=== PATIENT | male | born 1945 | race Caucasian/White ===

== ENCOUNTER → 2017-12-25 | Outpatient (CLI) | payer OTHER ==
[~2017-12-25] MED LIST: B-121000 MC2 PO; CELE200 PO; CHOL10002 PO; EPIN.3I IM; HYDR1TAB94 PO
[2017-12-25 10:55] LABS: Source, Urine Clean Catch
[2017-12-25 13:00] LABS: Bilirubin, Urine Neg (Neg); Blood, Urine Neg (Neg); Glucose Qualitative, Urine Neg (Neg); Ketones, Urine Neg (Neg); Leukocyte Esterase, Urine Neg (Neg); Nitrite, Urine Neg (Neg); Protein, Urine Neg (Neg); Specific Gravity, Urine 1.015 (1.003-1.022); Urobilinogen, Urine NORM (Normal)
[2017-12-25 13:10] LABS: Appearance, Urine Clear (Clear); Color, Urine Yellow (P-Yellow)
== END | disposition home or self-care (01) ==
LOC: LAB 10:54 → LAB SHORT 10:54 → LAB FUT 12-24 18:10 → EDSTATUS 12-24 18:10
PROVIDERS: Internal Medicine
DX: N39.0 Urinary tract infection, site not specified (principal)
CPT/HCPCS: 81003

== ENCOUNTER 2018-01-06 00:40 | Day surgery (SDC) | payer OTHER ==
[2018-01-06] MEDS ORDERED: METAMUCIL660 GM PO (10:28)
[2018-01-06] MEDS ORDERED: Oxycodone-Apap1 EAC3 PO (10:28)
[2018-01-06] MEDS ORDERED: VENL25 PO (10:29)
== END 2018-01-06 10:15 | disposition home or self-care (01) ==
LOC: ATC 00:40
DX: N40.1 Benign prostatic hyperplasia with lower urinary tract symptoms (principal); R35.0 Frequency of micturition; R35.1 Nocturia; R30.0 Dysuria
CPT/HCPCS: 51798

== ENCOUNTER 2018-12-29 12:23 | Emergency (ER) | payer OTHER ==
[~2018-12-29] VITALS: Ht 188 cm; Wt 86.2 kg
[~2018-12-29 12:23] MED LIST changes: +METAMUCIL660 GM PO; +Oxycodone-Apap1 EAC3 PO; +VENL25 PO
[2018-12-29] MEDS ORDERED: Augmentin 875-1 EACH PO (16:18)
[2018-12-29] MEDS ORDERED: Norco 5-325 Ta1 EACH PO (16:18)
== END 2018-12-29 16:50 | disposition home or self-care (01) ==
LOC: ER 12:23
DX: S62.521B Displaced fracture of distal phalanx of right thumb, initial encounter for open fracture (principal); X58.XXXA Exposure to other specified factors, initial encounter; Z88.0 Allergy status to penicillin; Z88.8 Allergy status to other drugs, medicaments and biological substances; Z79.899 Other long term (current) drug therapy
CPT/HCPCS: 29130; 36415; 73140; 90471; 90714; 96365-59; 99283-25; J0690; J0696

== ENCOUNTER → 2019-11-12 | Outpatient (CLI) | payer OTHER ==
[~2019-11-12] MED LIST changes: +Augmentin 875-1 EACH PO; +Norco 5-325 Ta1 EACH PO
== END | disposition home or self-care (01) ==
DX: R30.9 Painful micturition, unspecified (principal)

== ENCOUNTER 2024-01-17 10:16 | Inpatient (IN) | payer OTHER ==
[~2024-01-17] VITALS: Ht 185.4 cm; Wt 102.2 kg
[2024-01-17 14:38] LABS: BASOPHILS ABSOLUTE AUTO 0.02 K/mm3 (0.00-0.23); BASOPHILS PERCENT AUTO 0 % (0-2); EOSINOPHILS PERCENT AUTO 0 % (0-6); Hematocrit 43.9 % (37.0-53.0); Hemoglobin 13.9 g/dL (13.5-17.5); IMMATURE GRAN ABSOLUTE AUTO 0.05 K/mm3 (0.00-0.10); IMMATURE GRAN PERCENT AUTO 0 % (0-1); LYMPHOCYTES ABSOLUTE AUTO 1.17 K/mm3 (0.84-5.20); LYMPHOCYTES PERCENT AUTO 8 % (21-46); MONOCYTES ABSOLUTE AUTO 0.83 K/mm3 (0.16-1.47); MONOCYTES PERCENT AUTO 6 % (4-13); Mean Corpuscular HGB 27.8 pg (26.0-34.0); Mean Corpuscular HGB Conc 31.7 g/dL (31.5-36.5); Mean Corpuscular Volume 88 fL (80-100); Mean Platelet Volume 10.1 fL (9.1-12.4); NEUTROPHILS ABSOLUTE AUTO 11.88 K/mm3 (1.96-9.15); NEUTROPHILS PERCENT AUTO 85 % (41-73); Platelet Count 194 K/mm3 (150-400); RDW Coefficient Variation 13.1 % (11.7-14.2); RDW Standard Deviation 41.5 fL (35.1-46.3); White Blood Cell Count 13.95 K/mm3 (4.00-11.30)
[2024-01-17 14:52] LABS: Appearance, Urine Clear (Clear); Color, Urine Yellow (P-Yellow); Glucose Qualitative, Urine Neg (Neg); Ketones, Urine 3+ (Neg); Leukocyte Esterase, Urine Neg (Neg); Nitrite, Urine Neg (Neg); Protein, Urine 1+ (Neg); Urobilinogen, Urine NORM (Normal)
[2024-01-17 14:53] LABS: Bacteria Rare /hpf; Bilirubin, Urine Neg (Neg); Blood, Urine 2+ (Neg); Squamous Epithelial Cells Few /hpf (Few)
[2024-01-17 14:57] LABS: Albumin, Blood 3.3 g/dL (3.4-5.0); Albumin/Globulin Ratio 0.8 (0.8-1.8); Bilirubin, Total 0.5 mg/dL (0.1-1.0); Bun/Creatinine Ratio 17.8 (12.0-20.0); Calcium, Blood 8.1 mg/dL (8.5-10.1); Creatinine, Blood 0.9 mg/dL (0.60-1.20); Potassium, Blood 3.9 mmol/L (3.5-5.5); Total Protein, Blood 7.3 g/dL (6.4-8.2)
[2024-01-17] MEDS ORDERED: METR500 PO (15:06)
[2024-01-17] MEDS ORDERED: CIPR500 PO (15:06)
[2024-01-17] MEDS ORDERED: PROBIOTIC1 EA13 PO (15:07)
[2024-01-17] MEDS ORDERED: Ciprofloxacin 500 MG Tab PO ONE (16:50)
[2024-01-17 20:59] VITALS: BP 162/87
[2024-01-17] MEDS ORDERED: Albuterol HFA200 ACT/6.7 GM INH INH PRN (21:10)
[2024-01-17] MEDS ORDERED: OxyCODONE 5 mg/Acetamin 325 mg TABLET PO PRN (21:30)
[2024-01-17] MEDS ORDERED: NS 1,000 ML IV SCH (21:35)
[2024-01-18] MEDS ORDERED: Ondansetron HCl 2 MG / ML 2ML Vial IV PRN (00:35)
[2024-01-18] MEDS ORDERED: NS 1,000 ML IV ONE (00:40)
[2024-01-18 04:41] VITALS: BP 147/94
[2024-01-18 05:47] LABS: BASOPHILS ABSOLUTE AUTO 0.02 K/mm3 (0.00-0.23); BASOPHILS PERCENT AUTO 0 % (0-2); EOSINOPHILS PERCENT AUTO 0 % (0-6); Hematocrit 44.2 % (37.0-53.0); Hemoglobin 14.5 g/dL (13.5-17.5); IMMATURE GRAN ABSOLUTE AUTO 0.07 K/mm3 (0.00-0.10); IMMATURE GRAN PERCENT AUTO 1 % (0-1); LYMPHOCYTES ABSOLUTE AUTO 1.26 K/mm3 (0.84-5.20); LYMPHOCYTES PERCENT AUTO 9 % (21-46); MONOCYTES ABSOLUTE AUTO 1.06 K/mm3 (0.16-1.47); MONOCYTES PERCENT AUTO 8 % (4-13); Mean Corpuscular HGB 28.4 pg (26.0-34.0); Mean Corpuscular HGB Conc 32.8 g/dL (31.5-36.5); Mean Corpuscular Volume 87 fL (80-100); Mean Platelet Volume 9.6 fL (9.1-12.4); NEUTROPHILS ABSOLUTE AUTO 11.55 K/mm3 (1.96-9.15); NEUTROPHILS PERCENT AUTO 83 % (41-73); Platelet Count 177 K/mm3 (150-400); RDW Coefficient Variation 13.2 % (11.7-14.2); RDW Standard Deviation 41.7 fL (35.1-46.3); White Blood Cell Count 13.96 K/mm3 (4.00-11.30)
[2024-01-18 06:09] LABS: Albumin, Blood 3.2 g/dL (3.4-5.0); Albumin/Globulin Ratio 0.8 (0.8-1.8); Bilirubin, Total 0.6 mg/dL (0.1-1.0); Bun/Creatinine Ratio 19.8 (12.0-20.0); Calcium, Blood 8.4 mg/dL (8.5-10.1); Creatinine, Blood 1.11 mg/dL (0.60-1.20); Magnesium, Blood 1.9 mg/dL (1.6-2.4); Phosphorus, Blood 3.6 mg/dL (2.5-4.9); Potassium, Blood 3.4 mmol/L (3.5-5.5); Total Protein, Blood 7.2 g/dL (6.4-8.2)
--- NOTE | 2024-01-18 06:15 | NUR ---
SHIFT SUMMARY: Pt is admitted for colitis and is a full code. Is alert and able to make needs known. ADLs have been 2p but did not get out of bed during shift. Denies pain or discomfort when asked. Telly reports sinus at 96 with PACs.
[2024-01-18 07:08] VITALS: BP 157/83
[2024-01-18] MEDS ORDERED: Calcium Citrate 950 MG Tab PO ONE (07:30)
[2024-01-18] MEDS ORDERED: Mag Sulfate 1 GM/D5% 100ML 100 ML IV ONE (07:30)
[2024-01-18] MEDS ORDERED: Potassium Phosphate Dibasic 15 MM in Dextrose 5% 250 ML IV ONE (07:30)
[2024-01-18] MEDS ORDERED: Apixaban 5 MG Tab PO SCH (09:00)
[2024-01-18] MEDS ORDERED: AmLODIPine Besylate 5 MG Tab PO SCH (09:00)
[2024-01-18] MEDS ORDERED: Lactobacil 2-S.Thermo-Bifido 1 1 Cap PO SCH (09:00)
[2024-01-18] MEDS ORDERED: Metoprolol Tartrate 25 MG Tab PO SCH (09:00)
--- NOTE | 2024-01-18 17:40 | NUR ---
SHIFT SUMMARY PATIENT IN BED ALL SHIFT, WORKED WITH PT THIS SHIFT, RECOMMENDING SNF FOR STRENGHTENING. PATIENT HAVING SEVERAL EPISODES OF INCONTINENT BOWEL MOVEMENTS. INCONTINENT OF URINE WELL. A/O X3-4 HARD OF HEARING. ABLE TO USE CALL LIGHT, CARES ONGOING.
[2024-01-18] MEDS ORDERED: Tamsulosin HCl 0.4 MG Cap PO SCH (18:00)
[2024-01-18 19:11] VITALS: BP 145/68
[2024-01-19 02:48] VITALS: BP 113/70
[2024-01-19 05:16] LABS: BASOPHILS ABSOLUTE AUTO 0.02 K/mm3 (0.00-0.23); BASOPHILS PERCENT AUTO 0 % (0-2); EOSINOPHILS ABSOLUTE AUTO 0.03 K/mm3 (0.00-0.68); EOSINOPHILS PERCENT AUTO 0 % (0-6); Hematocrit 43.3 % (37.0-53.0); Hemoglobin 14.1 g/dL (13.5-17.5); IMMATURE GRAN ABSOLUTE AUTO 0.05 K/mm3 (0.00-0.10); IMMATURE GRAN PERCENT AUTO 0 % (0-1); LYMPHOCYTES ABSOLUTE AUTO 1.77 K/mm3 (0.84-5.20); LYMPHOCYTES PERCENT AUTO 14 % (21-46); MONOCYTES ABSOLUTE AUTO 1.43 K/mm3 (0.16-1.47); MONOCYTES PERCENT AUTO 11 % (4-13); Mean Corpuscular HGB 28.2 pg (26.0-34.0); Mean Corpuscular HGB Conc 32.6 g/dL (31.5-36.5); Mean Corpuscular Volume 87 fL (80-100); Mean Platelet Volume 9.8 fL (9.1-12.4); NEUTROPHILS ABSOLUTE AUTO 9.22 K/mm3 (1.96-9.15); NEUTROPHILS PERCENT AUTO 74 % (41-73); Platelet Count 184 K/mm3 (150-400); RDW Coefficient Variation 13.2 % (11.7-14.2); RDW Standard Deviation 41.9 fL (35.1-46.3); White Blood Cell Count 12.52 K/mm3 (4.00-11.30)
[2024-01-19 05:39] LABS: Magnesium, Blood 2.5 mg/dL (1.6-2.4)
[2024-01-19 05:40] LABS: Albumin, Blood 2.8 g/dL (3.4-5.0); Anion Gap 14 mmol/L (3-11); Blood Urea Nitrogen 40 mg/dL (8-24); Bun/Creatinine Ratio 18.4 (12.0-20.0); CO2, Blood 23 mmol/L (21-32); Calcium, Blood 8.5 mg/dL (8.5-10.1); Chloride, Blood 102 mmol/L (98-108); Creatinine, Blood 2.17 mg/dL (0.60-1.20); Glomerular Filtration Rate 30 (60-); Glucose, Blood 129 mg/dL (70-99); Phosphorus, Blood 4.6 mg/dL (2.5-4.9); Potassium, Blood 3.5 mmol/L (3.5-5.5); Sodium, Blood 135 mmol/L (136-145)
--- NOTE | 2024-01-19 06:03 | NUR ---
SHIFT SUMMARY: Pt is admitted for colitis and is a full code. Is alert and able to make needs known. ADLs have been 2p but did not get out of bed during shift. Pain was taken care with with PRN pain management. Raul reports sinus at 60s.
[2024-01-19 07:12] VITALS: BP 123/87
[2024-01-19 07:27] LABS: Influenza A, PCR NEGATIVE (NEGATIVE); Influenza B, PCR NEGATIVE (NEGATIVE); Resp Syncytial Virus, PCR NEGATIVE (NEGATIVE); SARS-Cov-2 (COVID-19) PCR, MMC NEGATIVE (NEGATIVE)
--- NOTE | 2024-01-19 08:58 | NUR ---
CONTACTED DR CAMARENA, PATIENT CONVERTED TO AFIB 96 BPM ABOUT 0700 THIS AM. RECIEVED NOTIFICATION FROM TELE ABOUT 829. NO NEW ORDERS. PATIENT ASYMPTOMATIC AT THIS TIME
[2024-01-19 16:51] VITALS: BP 117/80
--- NOTE | 2024-01-19 17:24 | NUR ---
SHIFT SUMMARY PATIENT ACCEPTING OF TURNING AND POSITIONING HELP. ONLY ONE SMALL BM THIS SHIFT. COYLE CATH INSERTED FOR URINE COLLECTION, ON INSERTION 1400ML DRAINED IMMEDIATELY. PATIENT DENIED DISCOMFORT OR THE URGE TO URINATE, ALSO HAD SOAKED BRIEF. PATIENT STATES TO HAVING A HISTORY OF RETENTION. 24 HOUR URINE COLLECTION CONTAINER ON ICE PER LAB REQUEST. FLUIDS INFUSING PER MAR. A/O 2-3, MORE EPISODES OF CONFUSION TODAY. DISCUSSED SNF RECOMMENDATION PER PT NOTES WITH WHO STATES TO BE IN AGREEMENT. CM CONSULT IN. CALL LIGHT IN REACH, CARES ONGOING.
[2024-01-19 19:09] VITALS: BP 121/86
[2024-01-19] MEDS ORDERED: AmLODIPine Besylate 5 MG Tab PO SCH (21:00)
[2024-01-20 03:55] VITALS: BP 113/72
[2024-01-20 05:05] LABS: Hematocrit 41.7 % (37.0-53.0); Hemoglobin 13.7 g/dL (13.5-17.5)
[2024-01-20 05:35] LABS: Magnesium, Blood 2.4 mg/dL (1.6-2.4)
[2024-01-20 05:36] LABS: Alanine Aminotransfer (ALT/SGP 37 U/L (12-78); Albumin, Blood 2.6 g/dL (3.4-5.0); Albumin/Globulin Ratio 0.7 (0.8-1.8); Alk Phos 72 U/L (50-136); Anion Gap 9 mmol/L (3-11); Aspartate Aminotrans (AST/SGOT 38 U/L (12-37); Bilirubin, Direct 0.1 mg/dL (0.0-0.3); Bilirubin, Indirect 0.3 mg/dL (0.1-0.7); Bilirubin, Total 0.4 mg/dL (0.1-1.0); Blood Urea Nitrogen 27 mg/dL (8-24); Bun/Creatinine Ratio 23.3 (12.0-20.0); CO2, Blood 27 mmol/L (21-32); Calcium, Blood 8.3 mg/dL (8.5-10.1); Chloride, Blood 108 mmol/L (98-108); Creatinine, Blood 1.16 mg/dL (0.60-1.20); Globulin, Blood 3.7 g/dL (2.2-4.0); Glomerular Filtration Rate 64 (60-); Glucose, Blood 116 mg/dL (70-99); Phosphorus, Blood 1.9 mg/dL (2.5-4.9); Potassium, Blood 3.3 mmol/L (3.5-5.5); Sodium, Blood 141 mmol/L (136-145); Total Protein, Blood 6.3 g/dL (6.4-8.2); Uric Acid, Blood 5.7 mg/dL (3.5-7.2)
--- NOTE | 2024-01-20 05:44 | NUR ---
SHIFT SUMMARY: Pt is admitted for colitis and is a full code. Is alert and able to make needs known. ADLs have been 2p but did not get out of bed during shift. Pain was taken care with with PRN pain management. Raul reports sinus at 80s with afib.
[2024-01-20 07:17] VITALS: BP 137/90
[2024-01-20] MEDS ORDERED: Potassium Phosphate Dibasic 10 MM in Dextrose 5% 250 ML IV ONE (07:30)
[2024-01-20] MEDS ORDERED: Potassium Chloride 10 Meq Tablet SA PO ONE (07:35)
[2024-01-20 14:42] VITALS: BP 125/73
--- NOTE | 2024-01-20 17:33 | NUR ---
SHIFT SUMMARY; PATIENT WORKS WITH PT/OT TODAY. UP TO BATHROOM AND SHOWER TODAY WITH ASSIST. MEDICATED X 1 WITH ZOFRAN FOR NAUSEA. PATIENT UP TO CHAIR FOR MEALS. LUNGS ARE CLEAR IN UPPER LOBES. DIM IN BASES. PATIENT IS INCONTINENT OF BOWEL. GI PANEL ORDERED. RN WILL COLLECT STOOL SAMPLE WHEN ABLE. COYLE CATHETER TO DOWN DRAIN. 24 HOUR URINE COLLECTED AND SENT TO LAB. IV POTTASSIUM ORDERED PER 10MM IV AND 10MEQ KCL PO. WILL CONTINUE TO MONITOR
[2024-01-20 19:42] VITALS: BP 131/78
[2024-01-20 19:46] LABS: Protein, Urine Quantitative 32.7 mg/dL (0.0-11.9)
[2024-01-20] MEDS ORDERED: Banana Flakes/Tos 1 EA Powder Pack PO SCH (21:00)
[2024-01-21 03:45] VITALS: BP 121/91
[2024-01-21 05:07] LABS: BASOPHILS ABSOLUTE AUTO 0.04 K/mm3 (0.00-0.23); BASOPHILS PERCENT AUTO 1 % (0-2); EOSINOPHILS ABSOLUTE AUTO 0.31 K/mm3 (0.00-0.68); EOSINOPHILS PERCENT AUTO 4 % (0-6); Hematocrit 42.4 % (37.0-53.0); Hemoglobin 13.8 g/dL (13.5-17.5); IMMATURE GRAN ABSOLUTE AUTO 0.03 K/mm3 (0.00-0.10); IMMATURE GRAN PERCENT AUTO 0 % (0-1); LYMPHOCYTES ABSOLUTE AUTO 2.49 K/mm3 (0.84-5.20); LYMPHOCYTES PERCENT AUTO 29 % (21-46); MONOCYTES ABSOLUTE AUTO 0.94 K/mm3 (0.16-1.47); MONOCYTES PERCENT AUTO 11 % (4-13); Mean Corpuscular HGB Conc 32.5 g/dL (31.5-36.5); Mean Corpuscular Volume 86 fL (80-100); Mean Platelet Volume 9.4 fL (9.1-12.4); NEUTROPHILS ABSOLUTE AUTO 4.79 K/mm3 (1.96-9.15); NEUTROPHILS PERCENT AUTO 56 % (41-73); Platelet Count 213 K/mm3 (150-400); RDW Standard Deviation 40.6 fL (35.1-46.3); Red Blood Cell Count 4.92 M/mm3 (4.30-5.90)
[2024-01-21 05:34] LABS: Albumin, Blood 2.6 g/dL (3.4-5.0); Albumin/Globulin Ratio 0.7 (0.8-1.8); Bilirubin, Total 0.5 mg/dL (0.1-1.0); Calcium, Blood 8.6 mg/dL (8.5-10.1); Globulin, Blood 3.8 g/dL (2.2-4.0); Magnesium, Blood 2.1 mg/dL (1.6-2.4); Phosphorus, Blood 2.2 mg/dL (2.5-4.9); Potassium, Blood 3.5 mmol/L (3.5-5.5); Total Protein, Blood 6.4 g/dL (6.4-8.2)
[2024-01-21] MEDS ORDERED: [UNRECOGNIZED DRUG - OTHER] IV ONE (06:30)
[2024-01-21] MEDS ORDERED: DEXTROSE IV ONE (06:30)
[2024-01-21] MEDS ORDERED: SODIUM PHOSPHATE IV ONE (06:30)
[2024-01-21 07:56] VITALS: BP 133/76
[2024-01-21 10:42] LABS: Campylobacter Sp Not Detected (NOT DETECT)
[2024-01-21 10:43] LABS: Adenovirus F 40/41 Not Detected (NOT DETECT); Astrovirus Not Detected (NOT DETECT); Cryptosporidium Not Detected (NOT DETECT); Cyclospora Cayetanensis Not Detected (NOT DETECT); E. Coli O157 Not Detected (NOT DETECT); Entamoeba Histolytica Not Detected (NOT DETECT); Enteroaggregative E. coli-EAEC Not Detected (NOT DETECT); Enteropathogenic E. coli-EPEC Not Detected (NOT DETECT); Enterotoxigenic E. coli-ETEC Not Detected (NOT DETECT); Giardia Lamblia Not Detected (NOT DETECT); Norovirus GI/GII Not Detected (NOT DETECT); Plesiomonas Shigelloides Not Detected (NOT DETECT); Rotavirus A Not Detected (NOT DETECT); Salmonella Sp Detected (NOT DETECT); Sapovirus Not Detected (NOT DETECT); Shiga Toxin-prod E. coli-STEC Not Detected (NOT DETECT); Shigella/Enteroin E. coli-EIEC Not Detected (NOT DETECT); Vibrio Cholerae Not Detected (NOT DETECT); Vibrio Sp Not Detected (NOT DETECT); Yersinia Enterocolitica Not Detected (NOT DETECT)
[2024-01-21 15:22] VITALS: BP 128/69
--- NOTE | 2024-01-21 15:35 | NUR ---
SHIFT SUMMARY; PATIENT HAD NO ACUTE CHANGES IN CONDITION NOTED DURING DAY SHIFT. HE IS AO X 4. FORGETFUL AT TIMES AND MUST BE REMIMDED THAT HE IS A FALL RISK. HE WANTS TO GO INTO BATHROOM INSTEAD OF USING BEDSIDE COMMODE OR BEDPAN HOWEVER PATIENT UNABLE TO TRANSFER FROM BED TO RECLINER WITHOUT 2 PERSON STRONG ASSIST. HIS VITAL SIGNS ARE STABLE AND HE RECEIVED POTTASSIUM IV TODAY FOR LOW KCL. HE FEEDS HIMSELF AND USES CALL LIGHT APPROPRIATELY. HE IS UNABLE TO CHANGE POSITIONS IN BED WITHOUT ASSIST.
[2024-01-21 19:38] VITALS: BP 140/78
[2024-01-22 03:42] VITALS: BP 141/84
--- NOTE | 2024-01-22 03:55 | NUR ---
INTENSIVIST SUMMARY VSS. ALERT AND ORIENTED. SLOW, SOFT SPEECH. HAS BEEN RESTING QUIETLY WITH FEW INTERRUPTIONS. NO C/O ABD PAIN (DX COLITIS). TOLERATING MEDS WELL. ABLE TO REPOSITION SELF IN BED WITHOUT ASSIST. CALL LIGHT IN REACH, RAILS UP X 2 AND BED IN LOW POSITION FOR SAFETY. WILL CONTINUE TO MONITOR,
[2024-01-22 05:45] LABS: BASOPHILS ABSOLUTE AUTO 0.04 K/mm3 (0.00-0.23); BASOPHILS PERCENT AUTO 0 % (0-2); EOSINOPHILS ABSOLUTE AUTO 0.31 K/mm3 (0.00-0.68); EOSINOPHILS PERCENT AUTO 3 % (0-6); Hematocrit 43.9 % (37.0-53.0); Hemoglobin 14.3 g/dL (13.5-17.5); IMMATURE GRAN ABSOLUTE AUTO 0.03 K/mm3 (0.00-0.10); IMMATURE GRAN PERCENT AUTO 0 % (0-1); LYMPHOCYTES ABSOLUTE AUTO 2.66 K/mm3 (0.84-5.20); LYMPHOCYTES PERCENT AUTO 28 % (21-46); MONOCYTES PERCENT AUTO 10 % (4-13); Mean Corpuscular HGB 27.8 pg (26.0-34.0); Mean Corpuscular HGB Conc 32.6 g/dL (31.5-36.5); Mean Corpuscular Volume 85 fL (80-100); Mean Platelet Volume 9.3 fL (9.1-12.4); NEUTROPHILS ABSOLUTE AUTO 5.62 K/mm3 (1.96-9.15); NEUTROPHILS PERCENT AUTO 58 % (41-73); Platelet Count 250 K/mm3 (150-400); RDW Coefficient Variation 12.6 % (11.7-14.2); RDW Standard Deviation 39.4 fL (35.1-46.3); Red Blood Cell Count 5.14 M/mm3 (4.30-5.90); White Blood Cell Count 9.66 K/mm3 (4.00-11.30)
[2024-01-22 07:01] LABS: Magnesium, Blood 2.1 mg/dL (1.6-2.4)
[2024-01-22 07:02] LABS: Albumin, Blood 2.7 g/dL (3.4-5.0); Albumin/Globulin Ratio 0.7 (0.8-1.8); Bilirubin, Total 0.7 mg/dL (0.1-1.0); Bun/Creatinine Ratio 16.6 (12.0-20.0); Calcium, Blood 8.9 mg/dL (8.5-10.1); Creatinine, Blood 0.96 mg/dL (0.60-1.20); Globulin, Blood 4.1 g/dL (2.2-4.0); Phosphorus, Blood 2.5 mg/dL (2.5-4.9); Potassium, Blood 3.6 mmol/L (3.5-5.5); Total Protein, Blood 6.8 g/dL (6.4-8.2)
[2024-01-22 07:06] VITALS: BP 129/77
[2024-01-22] MEDS ORDERED: ELIQUIS5 M2 PO (11:39)
[2024-01-22] MEDS ORDERED: Amlodipine Bes2.5 MG PO (11:39)
[2024-01-22] MEDS ORDERED: TAMS.4ER PO (11:40)
[2024-01-22] MEDS ORDERED: BANATROL PLUS1 EAC1 PO (11:40)
[2024-01-22] MEDS ORDERED: METO25 PO (11:40)
[2024-01-22 16:05] VITALS: BP 124/82
--- NOTE | 2024-01-22 19:45 | NUR ---
SUMMARY- PT A/O X3, FORGETFUL, HX DEMENTIA. PT HAD MULT LG SEMI FORMED ORANGE INCONTINANT STOOLS TODAY. COYLE TRAINING, CLAMPED Q3HRS X2, RELEASED AT 1900. NOTIFIED BATSHEVA ORR TO NICOLE COYLE. PT TOLERATING SMALL AMOUNTS OF PUREE DIET BUT STATES HE HAS NO APPETITE. TOLERATING FLUIDS WITH ENCOURAGEMENT. URINE LIGHT. TELE A FIB 90'S. PT LACKS MOTIVATION AND DECLINED TO WORK WITH O.T. STATES HE IS HAVING ANOTHER SPELL. P.T. CAME AROUND AND RN P.T. TOGETHER ENCOURAGED PT OOB 2 SBA, PT WITH ADQ STRENGTH, SLOW SHUFFELING GAIT. CALLED AND WANTS TO INSIST HE GO TO SNF AND NOT HOME, THAT HE LACKS MOTIVATION THERE AND WONT GET UP EITHER. REPORT TO SANDRA HERMAN RN
[2024-01-22 20:17] VITALS: BP 127/73
[2024-01-23 02:53] VITALS: BP 137/83
[2024-01-23 05:01] LABS: BASOPHILS ABSOLUTE AUTO 0.05 K/mm3 (0.00-0.23); BASOPHILS PERCENT AUTO 1 % (0-2); EOSINOPHILS ABSOLUTE AUTO 0.36 K/mm3 (0.00-0.68); EOSINOPHILS PERCENT AUTO 4 % (0-6); Hematocrit 43.1 % (37.0-53.0); Hemoglobin 14.1 g/dL (13.5-17.5); IMMATURE GRAN ABSOLUTE AUTO 0.04 K/mm3 (0.00-0.10); IMMATURE GRAN PERCENT AUTO 0 % (0-1); LYMPHOCYTES ABSOLUTE AUTO 2.69 K/mm3 (0.84-5.20); LYMPHOCYTES PERCENT AUTO 28 % (21-46); MONOCYTES ABSOLUTE AUTO 0.89 K/mm3 (0.16-1.47); MONOCYTES PERCENT AUTO 9 % (4-13); Mean Corpuscular HGB 27.8 pg (26.0-34.0); Mean Corpuscular HGB Conc 32.7 g/dL (31.5-36.5); Mean Corpuscular Volume 85 fL (80-100); NEUTROPHILS ABSOLUTE AUTO 5.43 K/mm3 (1.96-9.15); NEUTROPHILS PERCENT AUTO 58 % (41-73); Platelet Count 262 K/mm3 (150-400); RDW Coefficient Variation 12.6 % (11.7-14.2); RDW Standard Deviation 38.9 fL (35.1-46.3); Red Blood Cell Count 5.07 M/mm3 (4.30-5.90); White Blood Cell Count 9.46 K/mm3 (4.00-11.30)
[2024-01-23 05:45] LABS: Alanine Aminotransfer (ALT/SGP 98 U/L (12-78); Albumin, Blood 2.7 g/dL (3.4-5.0); Albumin/Globulin Ratio 0.7 (0.8-1.8); Alk Phos 90 U/L (50-136); Anion Gap 12 mmol/L (3-11); Aspartate Aminotrans (AST/SGOT 66 U/L (12-37); Bilirubin, Total 0.8 mg/dL (0.1-1.0); Blood Urea Nitrogen 17 mg/dL (8-24); Bun/Creatinine Ratio 16.2 (12.0-20.0); CO2, Blood 27 mmol/L (21-32); Calcium, Blood 8.9 mg/dL (8.5-10.1); Chloride, Blood 106 mmol/L (98-108); Creatinine, Blood 1.05 mg/dL (0.60-1.20); Globulin, Blood 3.8 g/dL (2.2-4.0); Glomerular Filtration Rate 72 (60-); Glucose, Blood 102 mg/dL (70-99); Magnesium, Blood 2.1 mg/dL (1.6-2.4); Phosphorus, Blood 2.8 mg/dL (2.5-4.9); Potassium, Blood 3.7 mmol/L (3.5-5.5); Sodium, Blood 141 mmol/L (136-145); Total Protein, Blood 6.5 g/dL (6.4-8.2)
--- NOTE | 2024-01-23 07:44 | NUR ---
SHIFT SUMMARY: PATIENT IS A&O TO SELF AND PLACE. NO REPORTS OF PAIN. ATTEMPTED TO WEAR CPAP LAST NIGHT AND WAS SUCCESSFUL FOR ABOUT 4 HOURS. ON RA PATIENT DESATED TO 69. 2L NC WAS APPLIED, THIS BROUGHT SATS UP TO 97%. LEONIDES WAS REMOVED THIS AM AT APPROXIMATLY 0615.
[2024-01-23 07:58] VITALS: BP 117/74
--- NOTE | 2024-01-23 17:15 | NUR ---
PT UNABLE TO VOID SINCE COYLE DC'S AT 0615, CHECKED BLADDER SCAN AT 1515- 700ML IN BLADDER. CALLED DR KOLB. ORDER TO REINSERT COYLE.
--- NOTE | 2024-01-23 17:18 | NUR ---
SUMMARY- PT ALERT TO SELF AND FAMILY AND GENERAL INFORMATION, NO DETAILS. FORGETFUL AND CONFUSED BUT KNOWS HIS LIMITS. HAS NOT TRIED TO GET OOB ALONE. GOT OOB TO CHAIR WITH OCC. TX TODAY, 1 PERSON GAIT BELT WALKER PIVOT TX. SAT UP IN CHAIR THROUGH LUNCH. HAS MIN APPETITE, TAKING IN ABOUT 25% OF MEALS, LIKES DRINKING LG AMOUNTS OF WATER. NO VOID SINCE COYLE DC'D THIS AM AT 0615, AFTER BLADDER SCAN OF 700ML AT 1515, ORDER TO RELPACE COYLE, IMMIDIATELY 700ML CLEAR YELLOW OUT. PT GOT INSURANCE APPROVAL FOR SNF, COVID SENT 1630. PLAN FOR [place] TO SNF TOMORROW. PAIN IN WRISTS TODAY, MEDICATED WITH PERC 1, HELPFUL TO RELEIVE PAIN. WILL REPORT TO NOC DOMINGA
[2024-01-23 17:19] VITALS: BP 136/88
[2024-01-23 18:30] LABS: SARS-Cov-2 (COVID-19) PCR, MMC NEGATIVE (NEGATIVE)
[2024-01-23] MEDS ORDERED: Metoprolol Tartrate 25 MG Tab PO ONE (18:55)
[2024-01-23] MEDS ORDERED: Metoprolol Tartrate 1 MG/ML 5 ML VIAL IV PRN (18:55)
[2024-01-23 19:00] VITALS: BP 123/78
--- NOTE | 2024-01-23 19:09 | NUR ---
TELE CALLED 1744 REPORTED HR 110-120'S, ONCE HIT INTO 150'S. CALLED DR KOLB LEFT MESSAGE 1819. REALIZED HOSP HAS TAKEN OVER, CALLED [facility], NEW ORDER FOR ONE TIME MET TAR 25MG PO, ADMINISTERED. PT DENIES ANY DIZZINESS OR S/S ASSOCIATED WITH HR. WILL REPORT TO NOC RN. ALSO OBTAINED PRN FOR HR OVER 100
[2024-01-23 19:54] VITALS: BP 118/82
[2024-01-23] MEDS ORDERED: Flecainide Acet50 MG PO (22:44)
[2024-01-24 02:38] VITALS: BP 128/79
--- NOTE | 2024-01-24 04:53 | NUR ---
MARKETING COMPLIANCE MANAGER NOTES PATIENT IS A&OX3, MILD CONFUSION, VITALS ARE STABLE, HAS 2L NC ORDER PRN. ON TELE RUNNING A-FIB 90S-100S. PLAN IS FOR PATIENT TO BE D/C TODAY TO A SNF.
[2024-01-24 05:19] LABS: BASOPHILS ABSOLUTE AUTO 0.06 K/mm3 (0.00-0.23); BASOPHILS PERCENT AUTO 1 % (0-2); EOSINOPHILS ABSOLUTE AUTO 0.23 K/mm3 (0.00-0.68); EOSINOPHILS PERCENT AUTO 3 % (0-6); Hematocrit 42.7 % (37.0-53.0); Hemoglobin 13.8 g/dL (13.5-17.5); IMMATURE GRAN ABSOLUTE AUTO 0.06 K/mm3 (0.00-0.10); IMMATURE GRAN PERCENT AUTO 1 % (0-1); LYMPHOCYTES ABSOLUTE AUTO 2.89 K/mm3 (0.84-5.20); LYMPHOCYTES PERCENT AUTO 31 % (21-46); MONOCYTES PERCENT AUTO 12 % (4-13); Mean Corpuscular HGB 27.8 pg (26.0-34.0); Mean Corpuscular HGB Conc 32.3 g/dL (31.5-36.5); Mean Corpuscular Volume 86 fL (80-100); NEUTROPHILS PERCENT AUTO 54 % (41-73); Platelet Count 286 K/mm3 (150-400); RDW Coefficient Variation 12.4 % (11.7-14.2); RDW Standard Deviation 39.3 fL (35.1-46.3); Red Blood Cell Count 4.96 M/mm3 (4.30-5.90); White Blood Cell Count 9.34 K/mm3 (4.00-11.30)
[2024-01-24 05:55] LABS: Albumin, Blood 2.7 g/dL (3.4-5.0); Albumin/Globulin Ratio 0.7 (0.8-1.8); Bilirubin, Total 0.9 mg/dL (0.1-1.0); Bun/Creatinine Ratio 15.7 (12.0-20.0); Calcium, Blood 8.9 mg/dL (8.5-10.1); Creatinine, Blood 1.08 mg/dL (0.60-1.20); Globulin, Blood 4.1 g/dL (2.2-4.0); Potassium, Blood 3.8 mmol/L (3.5-5.5); Total Protein, Blood 6.8 g/dL (6.4-8.2)
[2024-01-24 07:51] VITALS: BP 109/76
--- NOTE | 2024-01-24 11:37 | NUR ---
REPORT SUMMARY PT HR 150 NONSUSTAINED TWICE DURNING MOVING. PATIENT HEART RATE REDUCED TO 120-140 NOTIFED PHYSCIAN THAT THE RATE HAD WENT UP DURNING MOVEMENT. GAVE METROPOLOL FOR RATE CONTROL AND RATE CAME DOWN TO 98-110 AFIB RYTHMN. CONTINUE TO MONITOR PATIENT FOR SYMPTOMS. PATIENT DENIED DIZZINESS AND CHEST PAIN.
[2024-01-24 13:38] LABS: Magnesium, Blood 2.2 mg/dL (1.6-2.4); Phosphorus, Blood 3.1 mg/dL (2.5-4.9)
[2024-01-24 15:59] VITALS: BP 133/83
--- NOTE | 2024-01-24 16:01 | NUR ---
REPORT SUMMARY GAVE 25 MCG OF FENTANYL FOR PAIN IN LOWER REGION PATIENT STATED PAIN LEVEL WAS 5 OUT OF 10: 10 MINUTES LATER. ORIGNAL PAIN WAS AN 8.
[2024-01-24 18:40] VITALS: BP 120/69
[2024-01-24 19:28] VITALS: BP 122/81
--- NOTE | 2024-01-24 19:40 | NUR ---
SHIFT SUMMARY PATIENT HAD EPISODES OF ATRIL FIBRILLATION AT 150 DURNING MOVING. REPORTED TO PHYSICIAN. GAVE HEART CONTROL MEDICATION AND HEART RATE WENT TO 98 TO 100.
--- NOTE | 2024-01-24 19:47 | NUR ---
SHIFT SUMMARY TELEMETRY REPORT PATIENT HAD NONSUSTAINED AFIB 150 AT 1835, DID MANUAL PULSE AND HE WAS 103, MONITORED THE RESEARCH AND DEVELOPMENT CHEMIST AND PATIENT CAME DOWN TO 112. PATIENT HEART RATE CONTINUE TO STABLIZE. REPORTED TO ONCOMING NURSE HIS INTERMITTEN BOUTS OF NONSUSTAINED AFIB AND THE DOCTORS ORDERS TO CONTINUE TO MONITOR AND CALL HIM IF IT DOES NOT GO BACK TO A NORMAL RATE.
[2024-01-24] MEDS ORDERED: Flecainide Acetate 100 MG Tab PO SCH (21:00)
[2024-01-25 03:53] VITALS: BP 109/80
--- NOTE | 2024-01-25 04:51 | NUR ---
SHIFT SUMMARY 78 YR M ADMITTED ON 01/17/24. FULL CODE. NO ACUTE CHANGES THIS SHIFT. PT HR HAS SUSTAINED WNL FOR ENTIRETY OF THIS SHIFT. HE USES HIS OWN CPAP AND HAS SLEPT FOR MOST OF THIS SHIFT. HE IS PLEASANT AND COOPERATIVE AND IS ABLE TO MAKE HIS NEEDS KNOWN. PT GIVEN PAIN MEDICATION AT BEDTIME AND HAS HAD NO C/O PAIN OR DISCOMFORT SINCE THEN. WILL CONTINUE TO MONITOR. BED IN LOW POSITION AND CALL LIGHT IN REACH.
[2024-01-25 05:08] LABS: BASOPHILS ABSOLUTE AUTO 0.04 K/mm3 (0.00-0.23); BASOPHILS PERCENT AUTO 0 % (0-2); EOSINOPHILS ABSOLUTE AUTO 0.24 K/mm3 (0.00-0.68); EOSINOPHILS PERCENT AUTO 2 % (0-6); Hematocrit 40.9 % (37.0-53.0); Hemoglobin 13.5 g/dL (13.5-17.5); IMMATURE GRAN ABSOLUTE AUTO 0.08 K/mm3 (0.00-0.10); IMMATURE GRAN PERCENT AUTO 1 % (0-1); LYMPHOCYTES PERCENT AUTO 31 % (21-46); MONOCYTES ABSOLUTE AUTO 1.07 K/mm3 (0.16-1.47); MONOCYTES PERCENT AUTO 11 % (4-13); Mean Corpuscular HGB 28.4 pg (26.0-34.0); Mean Corpuscular Volume 86 fL (80-100); Mean Platelet Volume 9.4 fL (9.1-12.4); NEUTROPHILS ABSOLUTE AUTO 5.62 K/mm3 (1.96-9.15); NEUTROPHILS PERCENT AUTO 55 % (41-73); Platelet Count 304 K/mm3 (150-400); RDW Coefficient Variation 12.5 % (11.7-14.2); Red Blood Cell Count 4.75 M/mm3 (4.30-5.90); White Blood Cell Count 10.15 K/mm3 (4.00-11.30)
[2024-01-25 05:30] LABS: Bun/Creatinine Ratio 17.1 (12.0-20.0); Calcium, Blood 8.9 mg/dL (8.5-10.1); Creatinine, Blood 1.11 mg/dL (0.60-1.20); Potassium, Blood 3.6 mmol/L (3.5-5.5)
[2024-01-25 07:38] VITALS: BP 112/75
--- NOTE | 2024-01-25 18:42 | NUR ---
PATIENT ALERT AND ORIENT TIMES 3. FORGETFUL, FALL RISK, RIGHT LEG STIFF. 2 PERSON ASSIST. RIGHT HAND PAIN. AFIB MANAGED W/FLECAINDE. NO EVENTS TELEMETRY DURING SHIFT. TRANSFERED PATIENT TO [facility].VSS DURNING SHIFT
== END 2024-01-25 16:19 | DRG 871 ==
LOC: ER 10:16 → MEDS 17:45 → ENPENDDIS 01-24 10:09 → MEDS 01-25 16:19
PROVIDERS: Emergency Medicine; Internal Medicine; Internal Medicine Nephrology; ADMIT Family Medicine
DX: A02.1 Salmonella sepsis (principal); G93.41 Metabolic encephalopathy; A02.0 Salmonella enteritis; E87.1 Hypo-osmolality and hyponatremia; G95.29 Other cord compression; N17.9 Acute kidney failure, unspecified; I48.20 Chronic atrial fibrillation, unspecified; F03.90 Unspecified dementia, unspecified severity, without behavioral disturbance, psychotic disturbance, mood disturbance, and anxiety; M48.061 Spinal stenosis, lumbar region without neurogenic claudication; I35.0 Nonrheumatic aortic (valve) stenosis; M15.9 Polyosteoarthritis, unspecified; N40.1 Benign prostatic hyperplasia with lower urinary tract symptoms; R33.8 Other retention of urine; E86.0 Dehydration; I12.9 Hypertensive chronic kidney disease with stage 1 through stage 4 chronic kidney disease, or unspecified chronic kidney disease; N18.9 Chronic kidney disease, unspecified; E88.09 Other disorders of plasma-protein metabolism, not elsewhere classified; E83.41 Hypermagnesemia; E83.39 Other disorders of phosphorus metabolism; Z88.0 Allergy status to penicillin; Z88.8 Allergy status to other drugs, medicaments and biological substances; Z88.5 Allergy status to narcotic agent; Z79.1 Long term (current) use of non-steroidal anti-inflammatories (NSAID); Z79.01 Long term (current) use of anticoagulants
CPT/HCPCS: 0241U; 36415; 36416; 71045; 73110; 74177; 80048; 80053; 80069; 81001; 82248; 82330; 82550; 83605; 83735; 84100; 84156; 84484; 84550; 85014; 85018; 85025; 87040; 87507; 93005; 93010; 93306; 94760; 94762; 97110; 97162; 97166; 97530; 97535; 99285-25; A9270; G0103; J2405; J3475; J7030; J7060; Q9967; U0002

== ENCOUNTER → 2024-04-28 | Outpatient (CLI) | payer OTHER ==
[~2024-04-28] MED LIST changes: +Amlodipine Bes2.5 MG PO; +BANATROL PLUS1 EAC1 PO; +CIPR500 PO; +ELIQUIS5 M2 PO; +Flecainide Acet50 MG PO; +METO25 PO; +METR500 PO; +PROBIOTIC1 EA13 PO; +TAMS.4ER PO
[2024-04-28 16:46] LABS: Creatinine Urine 92.5 mg/dL (27.00-270.00); Protein, Urine Quantitative 15.4 mg/dL (0.0-11.9)
[2024-04-28 16:48] LABS: Microalbumin, Urine Quant. 30.3 mg/L (0.000-20.000)
== END | disposition home or self-care (01) ==
LOC: LAB SHORT 11:30 → LAB 11:30 → LAB FUT 04-24 16:15
PROVIDERS: Internal Medicine Nephrology
DX: N18.2 Chronic kidney disease, stage 2 (mild) (principal); D63.1 Anemia in chronic kidney disease; N25.81 Secondary hyperparathyroidism of renal origin; E55.9 Vitamin D deficiency, unspecified; E78.00 Pure hypercholesterolemia, unspecified; D51.8 Other vitamin B12 deficiency anemias; D52.8 Other folate deficiency anemias; D50.9 Iron deficiency anemia, unspecified; R76.9 Abnormal immunological finding in serum, unspecified; R94.5 Abnormal results of liver function studies; R94.6 Abnormal results of thyroid function studies
CPT/HCPCS: 81050; 82043; 82570; 84156

== ENCOUNTER → 2025-03-09 | Outpatient (CLI) | payer OTHER ==
[2025-03-09 17:57] LABS: Bilirubin, Urine Neg (Neg); Color, Urine Amber (P-Yellow); Glucose Qualitative, Urine Neg (Neg); Ketones, Urine Neg (Neg); Leukocyte Esterase, Urine 3+ (Neg); Protein, Urine 3+ (Neg); Specific Gravity, Urine 1.010 (1.003-1.022); Urobilinogen, Urine NORM (Normal)
[2025-03-09 19:06] LABS: Red Blood Cells, Urine TNTC /hpf (0-2); White Blood Cells, Urine TNTC /hpf (0-5)
== END ==
LOC: LAB SHORT 16:29 → LAB 16:29
PROVIDERS: Family Medicine
DX: N39.0 Urinary tract infection, site not specified (principal)
CPT/HCPCS: 81001; 87077; 87086; 87186

== ENCOUNTER → 2025-06-09 | Outpatient (CLI) | payer OTHER ==
[2025-06-09 17:15] LABS: Source, Urine Straight Cath
[2025-06-09 18:46] LABS: Bilirubin, Urine Neg (Neg); Color, Urine Brown (P-Yellow); Glucose Qualitative, Urine Neg (Neg); Ketones, Urine 1+ (Neg); Leukocyte Esterase, Urine 3+ (Neg); Protein, Urine 3+ (Neg); Specific Gravity, Urine 1.010 (1.003-1.022); Urobilinogen, Urine 1+ (Normal)
[2025-06-09 19:44] LABS: Red Blood Cells, Urine TNTC /hpf (0-2)
== END ==
LOC: LAB 15:46 → LAB SHORT 15:46
PROVIDERS: Family Medicine
DX: R33.8 Other retention of urine (principal); Z46.6 Encounter for fitting and adjustment of urinary device
CPT/HCPCS: 81001; 87086